=== PATIENT | male | born 1955 | race Two or more races ===

== ENCOUNTER 2017-03-06 01:22 | Emergency (ER) | payer SELFPAY ==
[~2017-03-06] VITALS: Ht 169.9 cm; Wt 80.7 kg
[2017-03-06] MEDS ORDERED: IV NORMAL SALINE 1000ML BAG 1,000 ML IV SCH (02:00)
--- NOTE | 2017-03-06 02:04 | PHYS DOC ---
Past Medical History Past Medical History: Hypertension, Kidney Stone Past Surgical History: Other Additional Past Surgical Histo: left hand/finger Alcohol Use: Rarely Drug Use: None Adult General Chief Complaint Chief Complaint: FLANK PAIN HPI HPI Patient is a 61 year old male who presents with complaint of left-sided flank pain. Patient states his symptoms are proximal to 7 hours prior to arrival. Patient states that his pain is sharp and located along his left side. Patient states that the pain radiates towards his left groin. Patient has had associated nausea and vomiting with his symptoms. Patient currently rates pain as 8 out of 10. Patient has not taken any medications to help with symptoms. Patient admits to history of kidney stones and states that his symptoms are similar to his previous episode. Patient states that he was able to pass his previous kidney stone spontaneously. Review of Systems Review of Systems Constitutional: Denies fever or chills [] Eyes: Denies change in visual acuity, redness, or eye pain [] HENT: Denies nasal congestion or sore throat [] Respiratory: Denies cough or shortness of breath [] Cardiovascular: Denies chest pain or edema[] GI: Denies abdominal pain, nausea, vomiting, bloody stools or diarrhea [] : Denies dysuria or hematuria [] Musculoskeletal: Left flank pain[] Integument: Denies rash or skin lesions [] Neurologic: Denies headache, focal weakness or sensory changes [] Current Medications Current Medications Current Medications Medications (Trade) Dose Ordered Sig/[facility] Start Time Stop Time Status Last Admin Dose Admin Morphine Sulfate 4 mg PRN Q15MIN PRN 03/06/17 02:00 03/07/17 01:59 03/06/17 03:20 4 MG Ondansetron HCl (Zofran) 4 mg 1X ONCE 03/06/17 02:30 03/06/17 02:31 DC 03/06/17 02:05 4 MG Sodium Chloride 1,000 ml @ 1,000 mls/hr Q1H 03/06/17 02:00 03/06/17 02:59 DC 03/06/17 02:05 1,000 MLS/HR Allergies Allergies Allergies Coded Allergies Type Severity Reaction Last Updated Verified No Known Drug Allergies 03/06/17 No Physical Exam Physical Exam Constitutional: Alert, afebrile, appears in moderate discomfort. [] HENT: Normocephalic, atraumatic, bilateral external ears normal, oropharynx moist, no oral exudates, nose normal. [] Eyes: PERRLA, EOMI, conjunctiva normal, no discharge. [] Neck: Normal range of motion, no tenderness, supple, no stridor. [] Cardiovascular:Heart rate regular rhythm, no murmur [] Lungs & Thorax: Bilateral breath sounds clear to auscultation [] Abdomen: Bowel sounds normal, soft, no tenderness, no masses, no pulsatile masses. [] Skin: Warm, dry, no erythema, no rash. [] Back: No midline tenderness, mild left CVA tenderness to palpation. [] Extremities: No tenderness, no cyanosis, no clubbing, ROM intact, no edema. [] Neurologic: Alert and oriented X 3, normal motor function, normal sensory function, no focal deficits noted. [] Current Patient Data Vital Signs Vital Signs Date Time Temp Pulse Resp B/P (MAP) Pulse Ox O2 Delivery O2 Flow Rate FiO2 03/06/17 02:48 76 16 149/90 (109) 93 Room Air 03/06/17 01:38 98.2 98.2 Lab Values Laboratory Tests Test 03/06/17 01:39 03/06/17 01:43 Urine Collection Type Unknown Urine Color Yellow Urine Clarity Clear Urine pH 6.0 Urine Specific [place] 1.020 Urine Protein Negative mg/dL (NEG-TRACE) Urine Glucose (UA) Negative mg/dL (NEG) Urine Ketones (Stick) Negative mg/dL (NEG) Urine Blood Trace (NEG) Urine Nitrite Negative (NEG) Urine Bilirubin Negative (NEG) Urine Urobilinogen Dipstick 0.2 mg/dL (0.2 mg/dL) Urine Leukocyte Esterase Negative (NEG) Urine RBC 1-2 /HPF (0-2) Urine WBC Occ /HPF (0-4) Urine Squamous Epithelial Cells Occ /LPF Urine Bacteria 0 /HPF (0-FEW) Urine Mucus Slight /LPF White Blood Count 12.3 x10^3/uL (4.0-11.0) H Red Blood Count 4.73 x10^6/uL (4.30-5.70) Hemoglobin 14.5 g/dL (13.0-17.5) Hematocrit 43.3 % (39.0-53.0) Mean Corpuscular Volume 92 fL (79-100) Mean Corpuscular Hemoglobin 31 pg (25-35) Mean Corpuscular Hemoglobin Concent 34 g/dL (31-37) Red Cell Distribution Width 12.9 % (11.5-14.5) Platelet Count 199 x10^3/uL (140-400) Neutrophils (%) (Auto) 81 % (31-73) H Lymphocytes (%) (Auto) 13 % (24-48) L Monocytes (%) (Auto) 5 % (0-9) Eosinophils (%) (Auto) 0 % (0-3) Basophils (%) (Auto) 0 % (0-3) Neutrophils # (Auto) 9.9 x10^3uL (1.8-7.7) H Lymphocytes # (Auto) 1.6 x10^3/uL (1.0-4.8) Monocytes # (Auto) 0.6 x10^3/uL (0.0-1.1) Eosinophils # (Auto) 0.0 x10^3/uL (0.0-0.7) Basophils # (Auto) 0.1 x10^3/uL (0.0-0.2) Sodium Level 144 mmol/L (136-145) Potassium Level 3.9 mmol/L (3.5-5.1) Chloride Level 107 mmol/L (98-107) Carbon Dioxide Level 28 mmol/L (21-32) Anion Gap 9 (6-14) Blood Urea Nitrogen 23 mg/dL (8-26) Creatinine 1.7 mg/dL (0.7-1.3) H Estimated GFR (Cockcroft-Gault) 41.0 BUN/Creatinine Ratio 14 (6-20) Glucose Level 155 mg/dL (70-99) H Calcium Level 8.9 mg/dL (8.5-10.1) Total Bilirubin 0.4 mg/dL (0.2-1.0) Aspartate Amino Transferase (AST) 28 U/L (15-37) Alanine Aminotransferase (ALT) 32 U/L (16-63) Alkaline Phosphatase 72 U/L (46-116) Total Protein 7.6 g/dL (6.4-8.2) Albumin 4.1 g/dL (3.4-5.0) Albumin/Globulin Ratio 1.2 (1.0-1.7) Lipase 200 U/L (73-393) Laboratory Tests 03/06/17 01:43 Laboratory Tests 03/06/17 01:43 EKG EKG Not performed[] Radiology/Procedures Radiology/Procedures [facility] [address] [place] [address] IMAGING REPORT Signed PATIENT: ZACARIAS BLAIR ACCOUNT: [id number] : 1955 LOCATION: ER AGE: 61 SEX: M EXAM STATUS: REG ER ORD. PHYSICIAN: JESSICA SERRA MD REASON: left flank pain, history of kidney stone PROCEDURE: CT ABDOMEN PELVIS WO CONTRAST CT abdomen and pelvis without contrast 03/06/2017 CLINICAL INDICATION: Left flank pain. History of kidney stones. COMPARISON: None. TECHNIQUE: Multiple CT images of the abdomen and pelvis were obtained without contrast. *One or more of the following individualized dose reduction techniques were utilized for this examination: 1. Automated exposure control. 2. Adjustment of the mA and/or kV according to patient size. 3. Use of iterative reconstruction technique. Abdomen and pelvis findings: Evaluation of the solid abdominal pelvic viscera, lymphadenopathy and vasculature is limited in the absence of intravenous contrast. Unenhanced contours of the liver spleen, adrenal glands and pancreas are grossly unremarkable. Cholelithiasis in a nondilated gallbladder. There is a 6 mm obstructive calculus at the left UVJ on series 2/image 200 with mild upstream resultant hydronephrosis with associated left periureteral and perinephric stranding. There is an edematous left kidney. No perinephric fluid collection. No right hydrocele ureter process or urolithiasis. Small and large bowel loops are normal in caliber without obstruction. No abdominal free fluid. Mildly distended unopacified urinary bladder is unremarkable. Prostate and seminal vesicles are present. No definite pelvic lymphadenopathy. No pelvic free fluid. Moderate disc degeneration at L5-S1. 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 No destructive osseous lesions. IMPRESSION: 1. 6 mm obstructive calculus at the left UVJ with upstream mild hydroureteronephrosis. 2. Edematous left kidney with left periureteral and perinephric stranding may be reactive to the stone, however ascending infection cannot be excluded. Electronically signed by: Nicole Carranza MD (03/06/2017 2:48 AM) [id number] DICTATED and SIGNED BY: NICOLE CARRANZA MD DATE: 03/06/17 0244 CC: JESSICA SERRA MD; NO PCP ~ [] Course & Med Decision Making Course & Med Decision Making Pertinent Labs and Imaging studies reviewed. (See chart for details) The patient was given IV fluids, morphine, and Zofran in the emergency department for treatment of symptoms. On reevaluation, patient's pain has improved. The patient's CT notes a 6 mm distal left ureteral stone with associated hydronephrosis and perinephric stranding. The patient's urine shows no evidence of acute infection, patient is afebrile, and vital signs are stable at this time. I do not see evidence that the patient has an infected stone from today's visit. Due to improvement in symptoms, the patient is appropriate for outpatient follow-up. The patient was provided with contact information for [facility] urology clinic. He was advised to call their office today to schedule an appointment in the next 2-3 days for reevaluation. The patient will continue with Aurora, Zofran, and Flomax for outpatient treatment. Advised return emergency department for any worsening symptoms. Patient voiced understanding and in agreement with treatment plan.[] Dragon Disclaimer Dragon Disclaimer This electronic medical record was generated, in whole or in part, using a voice recognition dictation system. Departure Departure Impression: Primary Impression: Ureteral stone Disposition: 01 HOME, SELF-CARE Condition: IMPROVED Patient Instructions: Diet for Kidney Stones, Kidney Stones Additional Instructions: Call the [facility] urology clinic at [phone] this morning to schedule a follow-up appointment in the next 2-3 days. Their address is [address] [place] [address], [facility] [address] [address]. Return to the emergency department for any worsening symptoms. Scripts Hydrocodone/Apap 5-325 (NORCO 5-325 TABLET) 1 Each Tablet 1-2 TAB PO Q4-6HRS Y for PAIN, #20 TAB 0 Refills Prov: JESSICA SERRA MD 03/06/17 Ondansetron (ZOFRAN ODT) 4 Mg Tab.rapdis 4 MG PO Q6HRS, #20 TAB Prov: JESSICA SERRA MD 03/06/17 Tamsulosin Hcl (FLOMAX) 0.4 Mg Cap.er.24h 1 CAP PO DAILY, #30 CAP 0 Refills Prov: JESSICA SERRA MD 03/06/17 JESSICA SERRA MD Mar 06, 2017 02:04
[2017-03-06 02:05] LABS: BASO # 0.1 x10^3/uL (0.0-0.2); BASO % 0 % (0-3); EOS % 0 % (0-3); HEMATOCRIT 43.3 % (39.0-53.0); HEMOGLOBIN 14.5 g/dL (13.0-17.5); LYMPH # 1.6 x10^3/uL (1.0-4.8); LYMPH % 13 % (24-48); MEAN CORPUSCULAR HEMOGLOBIN 31 pg (25-35); MEAN CORPUSCULAR HGB CONC 34 g/dL (31-37); MEAN CORPUSCULAR VOLUME 92 fL (79-100); MONO % 5 % (0-9); NEUT % 81 % (31-73); PLATELET COUNT 199 x10^3/uL (140-400); RED BLOOD COUNT 4.73 x10^6/uL (4.30-5.70); RED CELL DISTRIBUTION WIDTH 12.9 % (11.5-14.5); WHITE BLOOD COUNT 12.3 x10^3/uL (4.0-11.0)
[2017-03-06] MEDS: MORPHINE SULFATE 4 MG/ML DISP.SYRIN. IV/SQ PRN ×4 (02:06→03:20)
[2017-03-06] MEDS ORDERED: ONDANSETRON PF 4 MG/2 ML VIAL. IV ONE (02:30)
[2017-03-06 02:49] LABS: BACTERIA,URINE 0 /HPF (0-FEW); BILIRUBIN,URINE NEGATIVE (NEG); GLUCOSE,URINE NEGATIVE (NEG); NITRITE,URINE NEGATIVE (NEG); PROTEIN,URINE NEGATIVE (NEG-TRACE); SQUAMOUS EPITHELIAL CELL,UR OCC /LPF; UROBILINOGEN,URINE 0.2 mg/dL (0.2 mg/dL); WBC,URINE OCC /HPF (0-4)
[2017-03-06 02:51] LABS: CALCIUM 8.9 mg/dL (8.5-10.1); CREATININE 1.7 mg/dL (0.7-1.3); POTASSIUM 3.9 mmol/L (3.5-5.1)
--- NOTE | 2017-03-06 02:51 | RAD ---
CT abdomen and pelvis without contrast 03/06/2017 CLINICAL INDICATION: Left flank pain. History of kidney stones. COMPARISON: None. TECHNIQUE: Multiple CT images of the abdomen and pelvis were obtained without contrast. *One or more of the following individualized dose reduction techniques were utilized for this examination: 1. Automated exposure control. 2. Adjustment of the mA and/or kV according to patient size. 3. Use of iterative reconstruction technique. Abdomen and pelvis findings: Evaluation of the solid abdominal pelvic viscera, lymphadenopathy and vasculature is limited in the absence of intravenous contrast. Unenhanced contours of the liver spleen, adrenal glands and pancreas are grossly unremarkable. Cholelithiasis in a nondilated gallbladder. There is a 6 mm obstructive calculus at the left UVJ on series 2/image 200 with mild upstream resultant hydronephrosis with associated left periureteral and perinephric stranding. There is an edematous left kidney. No perinephric fluid collection. No right hydrocele ureter process or urolithiasis. Small and large bowel loops are normal in caliber without obstruction. No abdominal free fluid. Mildly distended unopacified urinary bladder is unremarkable. Prostate and seminal vesicles are present. No definite pelvic lymphadenopathy. No pelvic free fluid. Moderate disc degeneration at L5-S1. 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 No destructive osseous lesions. IMPRESSION: 1. 6 mm obstructive calculus at the left UVJ with upstream mild hydroureteronephrosis. 2. Edematous left kidney with left periureteral and perinephric stranding may be reactive to the stone, however ascending infection cannot be excluded. Electronically signed by: Jeremiah Carranza MD (03/06/2017 2:48 AM) [id number]
[2017-03-06 02:57] LABS: ALBUMIN 4.1 g/dL (3.4-5.0); ALBUMIN/GLOBULIN RATIO 1.2 (1.0-1.7); TOTAL BILIRUBIN 0.4 mg/dL (0.2-1.0); TOTAL PROTEIN 7.6 g/dL (6.4-8.2)
[2017-03-06] MEDS ORDERED: HYDR-971 PO (03:14)
[2017-03-06] MEDS ORDERED: ONDA4TAB10 PO (03:14)
[2017-03-06] MEDS ORDERED: TAMS0.4C97 PO (03:14)
[2017-03-06 03:18] VITALS: BP 146/84
== END 2017-03-06 03:40 | disposition home or self-care (01) ==
LOC: ER 01:22
DX: N13.2 Hydronephrosis with renal and ureteral calculous obstruction (principal); I10 Essential (primary) hypertension; Z87.442 Personal history of urinary calculi
CPT/HCPCS: 36415; 74176; 80053; 81001; 83690; 85025; 96361; 96374; 96375; 96376; 99285; J2270; J2405; J7030